=== PATIENT | female | born 1930 | race Caucasian/White ===

== ENCOUNTER 2018-08-26 11:34 | Emergency (ER) | payer MEDICARE, BC ==
--- NOTE | 2018-08-26 11:48 | EDM.PDOC ---
ED HPI GENERAL MEDICAL PROBLEM - General Chief Complaint: Lower Extremity Injury/Pain Stated Complaint: FELL ON RIGHT HIP Time Seen by Provider: 08/26/18 11:45 Source of Information: Reports: Patient History Limitations: Reports: No Limitations - History of Present Illness INITIAL COMMENTS - FREE TEXT/NARRATIVE: History of present illness: []Patient was walking to her mailbox and to put the trash away and she somehow fell of consciousness she complains of right hip and thigh pain and has an abrasion on her right elbow. Patient denies any headache, neck pain, chest or abdominal pain. Review of systems: As per history of present illness and below otherwise all systems reviewed and negative. Past medical history: As per history of present illness and as reviewed below otherwise noncontributory. Surgical history: As per history of present illness and as reviewed below otherwise noncontributory. Social history: No reported history of drug or alcohol abuse. Family history: As per history of present illness and as reviewed below otherwise noncontributory. Physical exam: General: Well developed, well nourished in NAD HEENT: Atraumatic, normocephalic, pupils reactive, negative for conjunctival pallor or scleral icterus, mucous membranes moist, throat clear, neck supple, nontender, trachea midline. Lungs: Clear to auscultation, breath sounds equal bilaterally, chest nontender. Heart: S1S2, regular, negative for clicks, rubs, or JVD. Abdomen: NABS, Soft, nondistended, nontender. Negative for masses or hepatosplenomegaly. Negative for costovertebral tenderness. Pelvis: Stable nontender. Genitourinary: Deferred. Rectal: Deferred. Extremities: Right elbow with large skin tear, full range of motion, distally intact, right hip tender to palpation no obvious deformities, leg shortening or rotation, negative for cords or calf pain. Neurovascular unremarkable. Neuro: Awake, alert, oriented. Cranial nerves II through XII unremarkable. Cerebellum unremarkable. Motor and sensory unremarkable throughout. Exam nonfocal. Skin:warm and dry Diagnostics: X-ray right hip, right femur, right elbow, CBC, chemistry Therapeutics: Morphine, IV hydration on a Miranda ED Course: Patient requested to transfer [facility] however they do not have anesthesia occupational health and safety officer this week Kelsie Bertrand consulted and patient was accepted by Dr. Mae Impression: Right Femur fracture, elbow skin tear Prescriptions: None Plan: Transfer to [facility] for orthopedics evaluation as we do not have orthopedic coverage this week here and [place] Definitive disposition and diagnosis as appropriate pending reevaluation and review of above. right hip Pain Score (Numeric/FACES): 6 - Related Data Allergies Allergy/AdvReac Type Severity Reaction Status Date / Time adhesive Allergy Cannot Verified 08/26/18 13:57 Remember codeine Allergy Cannot Verified 08/26/18 13:57 Remember tramadol Allergy Cannot Verified 08/26/18 13:57 Remember Home Meds: Home Meds Acetaminophen [Tylenol] 325 mg PO Q4H PRN 08/26/18 [History] Allopurinol [Zyloprim] 100 mg PO DAILY 08/26/18 [History] Calcium Carbonate [Calcium] 600 mg PO DAILY 08/26/18 [History] Cyanocobalamin (Vitamin B-12) [Vitamin B-12] 1,000 mcg PO DAILY 08/26/18 [ History] Latanoprost/Pf [Latanoprost 0.005% Eye Drop] 1 drop EYEBOTH DAILY 08/26/18 [ History] Levothyroxine [Synthroid] 50 mcg PO ACBREAKFAST 08/26/18 [History] Lutein/Min/Vit C/Vit E Acetate [Ocuvite Lutein] 1 tab PO DAILY 08/26/18 [History ] Pilocarpine [Pilocar 1% Ophth Soln] 1 drop EYERT BID 08/26/18 [History] atorvaSTATin [Lipitor] 20 mg PO DAILY 08/26/18 [History] cycloSPORINE [Restasis] 1 drop EYEBOTH BID 08/26/18 [History] hydroCHLOROthiazide [Hydrochlorothiazide] 25 mg PO DAILY 08/26/18 [History] Review of Systems - Review of Systems Review Of Systems: ROS reveals no pertinent complaints other than HPI. ED EXAM, GENERAL - Physical Exam Exam: See Below (See history of present illness) Course - Vital Signs Last Recorded V/S: Last Vital Signs Temp 97.8 F 08/26/18 11:45 Pulse 75 08/26/18 11:45 Resp 16 08/26/18 11:45 BP 160/67 H 08/26/18 11:45 Pulse Ox 97 08/26/18 11:45 - Orders/Labs/Meds Orders: Active Orders 24 hr Category Date Time Status EKG 12 Lead [EKG Documentation Completion] [RC] STAT Care 08/26/18 12:33 Active Insert Miranda Catheter [Insert Urinary Catheter] [OM.PC] Care 08/26/18 14:00 Ordered Q24H Urinary Catheter Assessment [RC] ASDIRECTED Care 08/26/18 13:54 Active NPO [Nothing Per Oral Diet] [DIET] Diet 08/26/18 Dinner Active Sodium Chloride 0.9% [Normal Saline] 1,000 ml Med 08/26/18 14:00 Active IV ASDIRECTED Sodium Chloride 0.9% [Saline Flush] Med 08/26/18 13:42 Active 10 ml FLUSH ASDIRECTED PRN Sodium Chloride 0.9% [Saline Flush] Med 08/26/18 13:42 Active 2.5 ml FLUSH ASDIRECTED PRN Saline Lock Insert [OM.PC] Stat Oth 08/26/18 13:42 Ordered Medication Orders Sodium Chloride (Normal Saline) 1,000 mls @ 50 mls/hr IV ASDIRECTED HOSEA Last Admin: 08/26/18 14:04 Dose: 50 mls/hr Sodium Chloride (Saline Flush) 10 ml FLUSH ASDIRECTED PRN PRN Reason: Keep Vein Open Last Admin: 08/26/18 14:11 Dose: 10 ml Sodium Chloride (Saline Flush) 2.5 ml FLUSH ASDIRECTED PRN PRN Reason: Keep Vein Open Last Admin: 08/26/18 14:11 Dose: 2.5 ml Labs: Laboratory Tests 08/26/18 08/26/18 Range/Units 14:10 14:10 WBC 11.34 H (4.0-11.0) K/uL RBC 3.94 L (4.30-5.90) M/uL Hgb 12.3 (12.0-16.0) g/dL Hct 37.0 (36.0-46.0) % MCV 93.9 (80.0-98.0) fL MCH 31.2 (27.0-32.0) pg MCHC 33.2 (31.0-37.0) g/dL RDW Std Deviation 47.3 (28.0-62.0) fl RDW Coeff of Cheryl 14 (11.0-15.0) % Plt Count 239 (150-400) K/uL MPV 9.90 (7.40-12.00) fL Neut % (Auto) 76.6 (48.0-80.0) % Lymph % (Auto) 16.0 (16.0-40.0) % [place] % (Auto) 5.8 (0.0-15.0) % Eos % (Auto) 1.1 (0.0-7.0) % Baso % (Auto) 0.5 (0.0-1.5) % Neut # (Auto) 8.7 H (1.4-5.7) K/uL Lymph # (Auto) 1.8 (0.6-2.4) K/uL [place] # (Auto) 0.7 (0.0-0.8) K/uL Eos # (Auto) 0.1 (0.0-0.7) K/uL Baso # (Auto) 0.1 (0.0-0.1) K/uL Nucleated RBC % 0.0 /100WBC Nucleated RBCs # 0 K/uL Sodium 143 (136-145) mmol/L Potassium 4.0 (3.5-5.1) mmol/L Chloride 106 (98-107) mmol/L Carbon Dioxide 25.1 (21.0-32.0) mmol/L BUN 28 H (7.0-18.0) mg/dL Creatinine 1.1 H (0.6-1.0) mg/dL Est Cr Clr Drug Dosing TNP Estimated GFR (MDRD) 47.0 ml/min Glucose 100 (74-106) mg/dL Calcium 9.7 (8.5-10.1) mg/dL Total Bilirubin 0.8 (0.2-1.0) mg/dL AST 23 (15-37) IU/L ALT 22 (14-63) IU/L Alkaline Phosphatase 83 (46-116) U/L Total Protein 7.3 (6.4-8.2) g/dL Albumin 4.0 (3.4-5.0) g/dL Globulin 3.3 (2.6-4.0) g/dL Albumin/Globulin Ratio 1.2 (0.9-1.6) Meds: Medications Generic Name Dose Route Start Last Admin Trade Name Freq PRN Reason Stop Dose Admin Sodium Chloride 1,000 mls @ 50 mls/hr 08/26/18 14:00 08/26/18 14:04 Normal Saline IV 50 mls/hr ASDIRECTED HOSEA Administration Sodium Chloride 10 ml 08/26/18 13:42 08/26/18 14:11 Saline Flush FLUSH 10 ml ASDIRECTED PRN Administration Keep Vein Open Sodium Chloride 2.5 ml 08/26/18 13:42 08/26/18 14:11 Saline Flush FLUSH 2.5 ml ASDIRECTED PRN Administration Keep Vein Open Discontinued Medications Generic Name Dose Route Start Last Admin Trade Name Freq PRN Reason Stop Dose Admin Morphine Sulfate 2 mg 08/26/18 14:25 Morphine IVPUSH 08/26/18 14:26 ONETIME ONE Ondansetron HCl 4 mg 08/26/18 14:25 Zofran IVPUSH 08/26/18 14:26 ONETIME ONE Departure - Departure Time of Disposition: 14:50 Disposition: DC/Tfer to Acute Hospital 02 Condition: Good Clinical Impression: Right femoral fracture Qualifiers: Encounter type: initial encounter Femur location: unspecified portion of femur Fracture type: closed Fracture morphology: unspecified fracture morphology Qualified Code(s): S72.91XA - Unspecified fracture of right femur, initial encounter for closed fracture - Discharge Information *PRESCRIPTION DRUG MONITORING PROGRAM REVIEWED*: No *COPY OF PRESCRIPTION DRUG MONITORING REPORT IN PATIENT MEHRDAD: No Referrals: PCP,None [Primary Care Provider] - Forms: ED Department Discharge - My Orders Last 24 Hours: My Active Orders 08/26/18 12:33 EKG 12 Lead [EKG Documentation Completion] [RC] STAT 08/26/18 13:42 Sodium Chloride 0.9% [Saline Flush] 10 ml FLUSH ASDIRECTED PRN Sodium Chloride 0.9% [Saline Flush] 2.5 ml FLUSH ASDIRECTED PRN Saline Lock Insert [OM.PC] Stat 08/26/18 13:54 Urinary Catheter Assessment [RC] ASDIRECTED 08/26/18 14:00 Insert Miranda Catheter [Insert Urinary Catheter] [OM.PC] Q24H Sodium Chloride 0.9% [Normal Saline] 1,000 ml IV ASDIRECTED 08/26/18 Dinner NPO [Nothing Per Oral Diet] [DIET] - Assessment/Plan Last 24 Hours: My Active Orders 08/26/18 12:33 EKG 12 Lead [EKG Documentation Completion] [RC] STAT 08/26/18 13:42 Sodium Chloride 0.9% [Saline Flush] 10 ml FLUSH ASDIRECTED PRN Sodium Chloride 0.9% [Saline Flush] 2.5 ml FLUSH ASDIRECTED PRN Saline Lock Insert [OM.PC] Stat 08/26/18 13:54 Urinary Catheter Assessment [RC] ASDIRECTED 08/26/18 14:00 Insert Miranda Catheter [Insert Urinary Catheter] [OM.PC] Q24H Sodium Chloride 0.9% [Normal Saline] 1,000 ml IV ASDIRECTED 08/26/18 Dinner NPO [Nothing Per Oral Diet] [DIET]
--- NOTE | 2018-08-26 12:58 | CR ---
EXAMINATION: Pelvis and right hip HISTORY: Fall COMPARISON: 06/23/2017 TECHNIQUE: AP pelvis and 2 views of the right hip FINDINGS: There is likely a nondisplaced infratrochanteric fracture involving the proximal right femur. Bilateral total hip hardware appear intact. The iliopectineal and ilioischial lines appear preserved. SI joints are symmetric. Osseous structures otherwise appear preserved. Moderate degenerative changes noted within the lower lumbar spine. IMPRESSION: Probable proximal right femoral fracture within the region of the mid femoral hardware component in the infratrochanteric region.
--- NOTE | 2018-08-26 12:59 | CR ---
EXAMINATION: Right elbow HISTORY: Fall COMPARISON: None TECHNIQUE: 3 views FINDINGS/IMPRESSION: There is no acute osseous abnormality, dislocation, or fracture. Bone mineralization appears osteopenic, joint spaces appear preserved. No joint effusion or soft tissue swelling.
[2018-08-26] MEDS ORDERED: Sodium Chloride 0.9% 2.5 ML Syringe FLUSH PRN (13:42)
[2018-08-26] MEDS ORDERED: Sodium Chloride 0.9% 10 ML Syringe FLUSH PRN (13:42)
[2018-08-26] MEDS ORDERED: Sodium Chloride 0.9% 1,000 ML IV SCH (14:00)
--- NOTE | 2018-08-26 14:24 | CR ---
EXAMINATION: Right femur HISTORY: Fracture COMPARISON: 08/26/2018 TECHNIQUE: 2 views FINDINGS/IMPRESSION: Cortical disruption involving the proximal and lateral aspect of the femur with underlying total hip hardware again noted. The remaining osseous structures appear intact with normal-appearing right total knee hardware. No focal soft tissue swelling or suprapatellar joint effusion.
[2018-08-26] MEDS ORDERED: Morphine 2 MG/ML Syringe IVPUSH ONE (14:25)
[2018-08-26] MEDS ORDERED: Ondansetron 4 MG/2 ML SDV IVPUSH ONE (14:25)
[2018-08-26 14:36] LABS: CHLORIDE,CL 106 mmol/L (98-107); SODIUM,NA 143 mmol/L (136-145)
== END 2018-08-26 15:18 ==
LOC: MW.ED 11:34
DX: S72.91XA Unspecified fracture of right femur, initial encounter for closed fracture (principal); S51.011A Laceration without foreign body of right elbow, initial encounter; Z88.5 Allergy status to narcotic agent; Z91.09 Other allergy status, other than to drugs and biological substances; Z79.899 Other long term (current) drug therapy; W19.XXXA Unspecified fall, initial encounter
CPT/HCPCS: 36415; 51702; 73080; 73502; 73552; 80053; 85025; 93005; 96361; 96374; 96375; 99285; J2270; J2405; J7040

== ENCOUNTER 2020-07-31 11:05 | Emergency (ER) | payer MEDICARE, BC ==
[2020-07-31] MEDS ORDERED: Sodium Chloride 0.9% 10 ML Syringe FLUSH PRN (11:18)
[2020-07-31] MEDS ORDERED: Sodium Chloride 0.9% 2.5 ML Syringe FLUSH PRN (11:18)
[2020-07-31] MEDS ORDERED: Aspirin 81 MG Tab.Chew PO ONE (11:20)
--- NOTE | 2020-07-31 11:24 | EDM.PDOC ---
ED HPI GENERAL MEDICAL PROBLEM - General Chief Complaint: Chest Pain Stated Complaint: CHEST PAIN, TIGHTNESS Time Seen by Provider: 07/31/20 11:06 - History of Present Illness INITIAL COMMENTS - FREE TEXT/NARRATIVE: 89-year-old female history of pacemaker placement but no history of CAD that she is aware of who is presenting with substernal nonradiating chest pressure. Symptoms started when she was sitting down in her kitchen this morning shortly after 730. It was accompanied with shortness of breath when it started and at its maximum intensity was 8 out of 10. Patient got up and moved to a more comfortable chair she did not experience worsening symptoms with this exertion. She called her daughter and was brought into the ER. Her pain is currently 5 out of 10. No lightheadedness or dizziness no nausea or vomiting the pain is not pleuritic it does not radiate to the back. She denies a prior history of similar episodes. She does not take aspirin or any blood thinners. The pain is associated with a heavy numb feeling of the bilateral arms. No vertigo no severe neck pain. Patient has a wound associated with a skin graft on the left lower extremity. Redness she was seen by her her provider is currently on antibiotics redness is improving dressing is not yet been changed today. chest Pain Score (Numeric/FACES): 5 - Related Data Allergies Allergy/AdvReac Type Severity Reaction Status Date / Time adhesive Allergy Cannot Verified 08/26/18 13:57 Remember codeine Allergy Vomiting Verified 07/31/20 11:29 tramadol Allergy Vomiting Verified 07/31/20 11:29 Home Meds: Home Meds Acetaminophen [Tylenol] 325 mg PO Q4H PRN 08/26/18 [History] Calcium Carbonate [Calcium] 600 mg PO DAILY 08/26/18 [History] Cyanocobalamin (Vitamin B-12) [Vitamin B-12] 1,000 mcg PO DAILY 08/26/18 [History] Latanoprost/Pf [Latanoprost 0.005% Eye Drop] 1 drop EYEBOTH DAILY 08/26/18 [History] Levothyroxine [Synthroid] 50 mcg PO ACBREAKFAST 08/26/18 [History] Lutein/Min/Vit C/Vit E Acetate [Ocuvite Lutein] 1 tab PO DAILY 08/26/18 [History] Pilocarpine [Pilocar 1% Ophth Soln] 1 drop EYERT BID 08/26/18 [History] allopurinoL [Zyloprim] 100 mg PO DAILY 08/26/18 [History] atorvaSTATin [Lipitor] 20 mg PO DAILY 08/26/18 [History] cycloSPORINE [Restasis] 1 drop EYEBOTH BID 08/26/18 [History] hydroCHLOROthiazide [Hydrochlorothiazide] 25 mg PO DAILY 08/26/18 [History] Past Medical History HEENT History: Reports: Impaired Vision Cardiovascular History: Reports: High Cholesterol, Hypertension - Past Surgical History Cardiovascular Surgical History: Reports: None Musculoskeletal Surgical History: Reports: Other (See Below) Other Musculoskeletal Surgeries/Procedures:: bilateral hip replacements and bilateral knee pain Social & Family History - Caffeine Use Caffeine Use: Reports: None ED ROS GENERAL - Review of Systems Review Of Systems: See Below Free Text/Narrative/Comment: General: No fever. Skin: Per HPI Eyes: No vision problems. ENT: No sore throat. Neck: No neck stiffness. Respiratory: Per HPI Cardiac: Per HPI Gastrointestinal: No nausea, vomiting or abdominal pain. Urinary: No dysuria. Musculoskeletal: No myalgias/arthralgias. Neurologic: No headache. ED EXAM, GENERAL - Physical Exam Exam: See Below Free Text/Narrative:: General Appearance: No acute distress, appears comfortable Skin: No rash HEENT: Normocephalic/atraumatic, sclera anicteric, mucous membranes moist Neck: Normal range of motion Chest and Lungs: Bilateral breath sounds, clear to auscultation Cardiovascular: Regular rate and rhythm, no murmur Abdomen: Soft, non-tender Back: Normal Musculoskeletal: No edema or tenderness, left lower extremity bandaged from just distal to the tibial tuberosity to just proximal to the malleoli Neurologic: Awake, alert, no obvious deficits, moving all extremities Psychiatric: Appropriate, cooperative #1 Interpretation EKG Date: 07/31/20 Time: 11:23 EKG Interpretation Comments: Stool AV paced complexes with a rate of 84 isolated PVC no findings suggesting acute ischemia. Course - Vital Signs Last Recorded V/S: Last Vital Signs Temp 97 F 07/31/20 11:12 Pulse 76 07/31/20 12:20 Resp 17 07/31/20 12:20 BP 126/60 07/31/20 12:20 Pulse Ox 97 07/31/20 12:20 - Orders/Labs/Meds Orders: Active Orders 24 hr Category Date Time Status EKG 12 Lead [EKG Documentation Completion] [RC] STAT Care 07/31/20 11:09 Active PTT,PARTIAL THROMBOPLSTIN TIME [COAG] Q6 Lab 08/01/20 00:15 Ordered PTT,PARTIAL THROMBOPLSTIN TIME [COAG] Q6 Lab 08/01/20 06:15 Ordered PTT,PARTIAL THROMBOPLSTIN TIME [COAG] Q6 Lab 08/01/20 12:15 Ordered PTT,PARTIAL THROMBOPLSTIN TIME [COAG] Q6 Lab 08/01/20 18:15 Ordered PTT,PARTIAL THROMBOPLSTIN TIME [COAG] Q6 Lab 08/02/20 00:15 Ordered Heparin Sodium/0.45% NaCl [Heparin 25,000 Units in 1/2 Med 07/31/20 12:15 Active NS 500 ML] 500 ml IV TITRATE Sodium Chloride 0.9% [Saline Flush] Med 07/31/20 11:18 Active 10 ml FLUSH ASDIRECTED PRN Sodium Chloride 0.9% [Saline Flush] Med 07/31/20 11:18 Active 2.5 ml FLUSH ASDIRECTED PRN Saline Lock Insert [OM.PC] Stat Oth 07/31/20 11:18 Ordered Medication Orders Heparin Sodium/Sodium Chloride (Heparin 25,000 Units In 1/2 Ns 500 Ml) 500 mls @ 27 mls/hr IV TITRATE HOSEA; Protocol Last Admin: 07/31/20 12:29 Dose: 18 units/kg/hr, 27 mls/hr Documented by: KAREN Cosigned by: KHADIJAH Sodium Chloride (Sodium Chloride 0.9% 10 Ml Syringe) 10 ml FLUSH ASDIRECTED PRN PRN Reason: Keep Vein Open Last Admin: 07/31/20 11:35 Dose: 10 ml Documented by: KAREN Sodium Chloride (Sodium Chloride 0.9% 2.5 Ml Syringe) 2.5 ml FLUSH ASDIRECTED PRN PRN Reason: Keep Vein Open Last Admin: 07/31/20 11:35 Dose: 2.5 ml Documented by: KAREN Labs: Laboratory Tests 07/31/20 07/31/20 07/31/20 Range/Units 11:24 11:24 11:24 WBC 8.02 (4.0-11.0) K/uL RBC 3.93 L (4.30-5.90) M/uL Hgb 12.6 (12.0-16.0) g/dL Hct 38.5 (36.0-46.0) % MCV 98.0 (80.0-98.0) fL MCH 32.1 H (27.0-32.0) pg MCHC 32.7 (31.0-37.0) g/dL RDW Std Deviation 48.3 (28.0-62.0) fl RDW Coeff of Cheryl 13 (11.0-15.0) % Plt Count 365 (150-400) K/uL MPV 9.60 (7.40-12.00) fL Neut % (Auto) 74.4 (48.0-80.0) % Lymph % (Auto) 18.6 (16.0-40.0) % [place] % (Auto) 4.7 (0.0-15.0) % Eos % (Auto) 1.6 (0.0-7.0) % Baso % (Auto) 0.7 (0.0-1.5) % Neut # (Auto) 6.0 H (1.4-5.7) K/uL Lymph # (Auto) 1.5 (0.6-2.4) K/uL [place] # (Auto) 0.4 (0.0-0.8) K/uL Eos # (Auto) 0.1 (0.0-0.7) K/uL Baso # (Auto) 0.1 (0.0-0.1) K/uL Nucleated RBC % 0.0 /100WBC Nucleated RBCs # 0 K/uL APTT (18.6-31.3) SEC D-Dimer, Quantitative 2.15 H (0.0-0.50) mg/L FEU Sodium 141 (136-145) mmol/L Potassium 4.7 (3.5-5.1) mmol/L Chloride 104 (98-107) mmol/L Carbon Dioxide 27.9 (21.0-32.0) mmol/L BUN 25 H (7.0-18.0) mg/dL Creatinine 1.3 H (0.6-1.0) mg/dL Est Cr Clr Drug Dosing TNP Estimated GFR (MDRD) 38.6 ml/min Glucose 104 (74-106) mg/dL Calcium 9.7 (8.5-10.1) mg/dL Magnesium 2.5 H (1.8-2.4) mg/dL Total Bilirubin 0.5 (0.2-1.0) mg/dL AST 35 (15-37) IU/L ALT 27 (14-63) IU/L Alkaline Phosphatase 128 H (46-116) U/L Troponin I 6.331 H* (0.000-0.056) ng/mL Total Protein 7.9 (6.4-8.2) g/dL Albumin 3.8 (3.4-5.0) g/dL Globulin 4.1 H (2.6-4.0) g/dL Albumin/Globulin Ratio 0.9 (0.9-1.6) 07/31/20 Range/Units 11:24 WBC (4.0-11.0) K/uL RBC (4.30-5.90) M/uL Hgb (12.0-16.0) g/dL Hct (36.0-46.0) % MCV (80.0-98.0) fL MCH (27.0-32.0) pg MCHC (31.0-37.0) g/dL RDW Std Deviation (28.0-62.0) fl RDW Coeff of Cheryl (11.0-15.0) % Plt Count (150-400) K/uL MPV (7.40-12.00) fL Neut % (Auto) (48.0-80.0) % Lymph % (Auto) (16.0-40.0) % [place] % (Auto) (0.0-15.0) % Eos % (Auto) (0.0-7.0) % Baso % (Auto) (0.0-1.5) % Neut # (Auto) (1.4-5.7) K/uL Lymph # (Auto) (0.6-2.4) K/uL [place] # (Auto) (0.0-0.8) K/uL Eos # (Auto) (0.0-0.7) K/uL Baso # (Auto) (0.0-0.1) K/uL Nucleated RBC % /100WBC Nucleated RBCs # K/uL APTT 24.9 (18.6-31.3) SEC D-Dimer, Quantitative (0.0-0.50) mg/L FEU Sodium (136-145) mmol/L Potassium (3.5-5.1) mmol/L Chloride (98-107) mmol/L Carbon Dioxide (21.0-32.0) mmol/L BUN (7.0-18.0) mg/dL Creatinine (0.6-1.0) mg/dL Est Cr Clr Drug Dosing Estimated GFR (MDRD) ml/min Glucose (74-106) mg/dL Calcium (8.5-10.1) mg/dL Magnesium (1.8-2.4) mg/dL Total Bilirubin (0.2-1.0) mg/dL AST (15-37) IU/L ALT (14-63) IU/L Alkaline Phosphatase (46-116) U/L Troponin I (0.000-0.056) ng/mL Total Protein (6.4-8.2) g/dL Albumin (3.4-5.0) g/dL Globulin (2.6-4.0) g/dL Albumin/Globulin Ratio (0.9-1.6) Meds: Medications Generic Name Dose Route Start Last Admin Trade Name Freq PRN Reason Stop Dose Admin Heparin Sodium/Sodium Chloride 500 mls @ 27 mls/hr 07/31/20 12:15 07/31/20 12:29 Heparin 25,000 Units In 1/2 Ns 500 Ml IV 18 units/kg/hr TITRATE HOSEA 27 mls/hr Administration Protocol 18 UNITS/KG/HR Sodium Chloride 10 ml 07/31/20 11:18 07/31/20 11:35 Sodium Chloride 0.9% 10 Ml Syringe FLUSH 10 ml ASDIRECTED PRN Administration Keep Vein Open Sodium Chloride 2.5 ml 07/31/20 11:18 07/31/20 11:35 Sodium Chloride 0.9% 2.5 Ml Syringe FLUSH 2.5 ml ASDIRECTED PRN Administration Keep Vein Open Discontinued Medications Generic Name Dose Route Start Last Admin Trade Name Freq PRN Reason Stop Dose Admin Aspirin 324 mg 07/31/20 11:20 07/31/20 11:30 Aspirin 81 Mg Tab.Chew PO 07/31/20 11:21 324 mg ONETIME ONE Administration Heparin Sodium (Porcine) 5,000 units 07/31/20 12:20 07/31/20 12:25 Heparin Sodium 5,000 Units/Ml Vial IVPUSH 07/31/20 12:21 5,000 units ONETIME ONE Administration Nitroglycerin 0.4 mg 07/31/20 11:21 07/31/20 11:46 Nitroglycerin 0.4 Mg Tab.Sl SL 0.4 mg Q5M PRN Administration Chest Pain Departure - Departure Time of Disposition: 12:22 Disposition: DC/Tfer to Acute Hospital 02 Condition: Good Clinical Impression: NSTEMI (non-ST elevated myocardial infarction) - Discharge Information *PRESCRIPTION DRUG MONITORING PROGRAM REVIEWED*: Not Applicable *COPY OF PRESCRIPTION DRUG MONITORING REPORT IN PATIENT MEHRDAD: Not Applicable Referrals: PCP,None [Primary Care Provider] - Forms: ED Department Discharge Sepsis Event Note (ED) - Evaluation Sepsis Screening Result: No Definite Risk - Focused Exam Vital Signs: Vital Signs Temp Pulse Resp BP BP Pulse Ox 07/31/20 12:20 76 17 126/60 97 07/31/20 12:15 78 17 108/58 L 97 07/31/20 12:00 76 17 113/59 L 95 07/31/20 11:46 104/59 L 07/31/20 11:38 131/63 07/31/20 11:32 157/72 H 07/31/20 11:12 97 F 78 18 177/72 H 94 L - My Orders Last 24 Hours: My Active Orders 07/31/20 11:09 EKG 12 Lead [EKG Documentation Completion] [RC] STAT 07/31/20 11:18 Sodium Chloride 0.9% [Saline Flush] 10 ml FLUSH ASDIRECTED PRN Sodium Chloride 0.9% [Saline Flush] 2.5 ml FLUSH ASDIRECTED PRN Saline Lock Insert [OM.PC] Stat 07/31/20 12:15 Heparin Sodium/0.45% NaCl [Heparin 25,000 Units in 1/2 NS 500 ML] 500 ml IV TITRATE 08/01/20 00:15 PTT,PARTIAL THROMBOPLSTIN TIME [COAG] Q6H 08/01/20 06:15 PTT,PARTIAL THROMBOPLSTIN TIME [COAG] Q6H 08/01/20 12:15 PTT,PARTIAL THROMBOPLSTIN TIME [COAG] Q6H 08/01/20 18:15 PTT,PARTIAL THROMBOPLSTIN TIME [COAG] Q6H 08/02/20 00:15 PTT,PARTIAL THROMBOPLSTIN TIME [COAG] Q6H - Assessment/Plan Last 24 Hours: My Active Orders 07/31/20 11:09 EKG 12 Lead [EKG Documentation Completion] [RC] STAT 07/31/20 11:18 Sodium Chloride 0.9% [Saline Flush] 10 ml FLUSH ASDIRECTED PRN Sodium Chloride 0.9% [Saline Flush] 2.5 ml FLUSH ASDIRECTED PRN Saline Lock Insert [OM.PC] Stat 07/31/20 12:15 Heparin Sodium/0.45% NaCl [Heparin 25,000 Units in 1/2 NS 500 ML] 500 ml IV TITRATE 08/01/20 00:15 PTT,PARTIAL THROMBOPLSTIN TIME [COAG] Q6H 08/01/20 06:15 PTT,PARTIAL THROMBOPLSTIN TIME [COAG] Q6H 08/01/20 12:15 PTT,PARTIAL THROMBOPLSTIN TIME [COAG] Q6H 08/01/20 18:15 PTT,PARTIAL THROMBOPLSTIN TIME [COAG] Q6H 08/02/20 00:15 PTT,PARTIAL THROMBOPLSTIN TIME [COAG] Q6H Assessment:: 89-year-old female presenting with substernal chest pressure. Patient has some mild hypertension as well in will provide sublingual nitroglycerin as well as aspirin. No findings suggest aortic dissection. ACS is certainly a consideration PE considered as well I think less likely but patient may not be able to mount a tachycardic response and D-dimer has been sent. Would age- adjusted this result. Nothing suggest pneumonia or pneumothorax per chest x-ray ordered. No clinical signs of fluid overload. Will evaluate the left leg wound. Continue to reassess. 1155: Pt had good sx resolution with the nitro and ASA, SBP now 104, no lightheadedness or SOB. D-Dimer significantly abnormal, could be 2/2 leg infection. However, CTPA is pending. 1205: Lab called and patient's troponin is just over 6. The lack of hypoxia, pleuritic chest pain or SOB in the setting of a trop that high makes PE less likely in my estimation. On my reassessment at this time the patient remains symptom free. No chest pain or SOB. Given the troponin elevation the patient will need a higher level of care. Patient discussed with Dr. Pryor. Will start a heparin gtt. If patient remains sx free and there is a ground ambulance available then patient will go via ground. Given + D Dimer and transfer will start to hep gtt protocol for VTE. 1220: There will be no ground ambulance available for transport until 1730 tonight. This will cause an unacceptable delay in her treatment and could risk deterioration prior to arriving at a higher level of care. Given this will fly. Patient and family agree. 1255: Helicopter is unable to fly. Will use fixed wing through [place]. 1315: Pt left the ED in stable condition.
[2020-07-31] MEDS: Nitroglycerin 0.4 MG Tab.SL SL PRN ×3 (11:32→11:46)
[2020-07-31 11:54] LABS: BLOOD UREA NITROGEN,BUN 25 mg/dL (7.0-18.0); CARBON DIOXIDE,CO2 27.9 mmol/L (21.0-32.0); CHLORIDE,CL 104 mmol/L (98-107); GLUCOSE RANDOM 104 mg/dL (74-106); POTASSIUM,K 4.7 mmol/L (3.5-5.1); SODIUM,NA 141 mmol/L (136-145)
--- NOTE | 2020-07-31 11:58 | CR ---
INDICATION: Chest pain TECHNIQUE: Single view chest. No comparison FINDINGS: Normal cardiac mediastinal silhouette left cardiac pacer. Lungs are clear of acute airspace or interstitial process. Left basilar atelectasis or fibrotic change. No pneumothorax or large effusion. Dictated by Tammie Harris MD @ Jul 31 2020 11:56AM Signed by Dr. Tammie Harris @ Jul 31 2020 11:57AM
[2020-07-31] MEDS ORDERED: Heparin Sodium/0.45% NaCl 500 ML IV SCH (12:15)
[2020-07-31] MEDS ORDERED: Heparin Sodium 5,000 Units/ML Vial IVPUSH ONE (12:20)
== END 2020-07-31 13:25 ==
LOC: MW.ED 11:05
DX: I21.4 Non-ST elevation (NSTEMI) myocardial infarction (principal); E78.00 Pure hypercholesterolemia, unspecified; I10 Essential (primary) hypertension; Z91.048 Other nonmedicinal substance allergy status; Z88.5 Allergy status to narcotic agent; Z79.899 Other long term (current) drug therapy
CPT/HCPCS: 36415; 71045; 80053; 83735; 84484; 85025; 85379; 85730; 93005; 96365; 99285; A9270; J1644; 93010; 99284